=== PATIENT | male | born 1985 | race Caucasian/White ===

== ENCOUNTER 2016-11-29 22:44 | Emergency (ER) | payer OTHER, MEDICAID ==
[2016-11-29] MEDS ORDERED: 0.9% Sodium Chloride 1,000 ML IV ONE (22:50)
[2016-11-29 23:01] LABS: BASOPHILS % (AUTO) 2.5 % (0-3); EOSINOPHILS % (AUTO) 4.2 % (0-5); MONOCYTES % (AUTO) 8.8 % (4-12); Mean Corpuscular Hemoglobin 29.3 pg (27.0-35.0); Mean Corpuscular Volume 86.8 fL (81-100); NEUTROPHILS % (AUTO) 41.7 % (40-74); Platelet Count 248 bil/L (150-400)
[2016-11-29 23:20] LABS: INR 0.93 ratio
[2016-11-29] MEDS ORDERED: HYDROmorphone 0.5 mg/0.5 mL iSecure Syringe IVPUSH PRN (23:25)
[2016-11-29] MEDS ORDERED: TdaP Vaccine 0.5 mL Inj IM ONE (23:25)
[2016-11-29] MEDS ORDERED: Ondansetron 2 mg/mL 2 mL Inj IVPUSH PRN (23:25)
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
[2016-11-29] MEDS ORDERED: Dextrose 5% 0.9% NaCl 1,000 ML IV SCH (23:56)
[2016-11-30] MEDS ORDERED: MetoCLOpramide 5 mg/mL 2 mL Inj IVPUSH PRN
[2016-11-30] MEDS ORDERED: Ondansetron 2 mg/mL 2 mL Inj IVPUSH PRN
[2016-11-30] MEDS ORDERED: HYDROmorphone 1 mg/mL Inj IVPUSH PRN
[2016-11-30 00:09] LABS: APPEARANCE,URINE CLOUDY (CLEAR,HAZY); COLOR,URINE RED (YELLOW); OCCULT BLOOD,URINE LARGE (NEGATIVE); UROBILINOGEN,URINE NORMAL (NORMAL)
[2016-11-30] MEDS ORDERED: Lidocaine 1%-Epi 1:100,000 20 mL Inj ONE (00:41)
[2016-11-30 02:32] VITALS: BP 114/66; PULSE 87; RESP 18; O2SAT 98
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
--- NOTE | 2016-11-30 06:25 | DRSVH ---
PROCEDURE: CT BRAIN WITHOUT CONTRAST ([id number]) INDICATIONS: trauma TECHNIQUE: Noncontrast 4.5 mm thick angled axial sections acquired from the foramen magnum to the vertex, with c oronal reformats. COMPARISON: None. FINDINGS: Image quality: Excellent. CSF spaces: Basal cisterns are patent. No extra-axial fluid collections. Ventricles are normal in size and shape. Brain: No midline shift. No intracranial masses or hemorrhage. Chávez-white matter interface is norm al. Skull and face: Calvarium and visualized facial bones are intact, without suspicious lesions. Sinuses: There is a left maxillary sinus mucus retention cyst. Visualized sinuses and mastoids are o therwise clear. Soft tissue swelling is present at the tip of the nose. IMPRESSION: 1. No acute intracranial findings. 2. Nasal soft tissue swelling. These findings are concordant with the overnight interpretation. Dictated by: Giulia Charlton M.D. on 11/30/2016 at 6:21 Approved by: Giulia Charlton M.D. on 11/30/2016 at 6:23
--- NOTE | 2016-11-30 06:36 | DRSVH ---
PROCEDURE: CT CHEST, ABDOMEN AND PELVIS WITH CONTRAST ([id number]) INDICATIONS: trauma TECHNIQUE: After the administration of intravenous contrast, 5 mm thick sections acquired from the lung apices t o the symphysis. 5 mm thick coronal and sagittal reformats were acquired. Additional 7 mm thick cor onal maximum intensity projection (MIP) reformats acquired through the lungs. Optional 10-minute del ayed imaging may be performed from the kidneys to the bladder. For radiation dose reduction, the fol lowing was used: automated exposure control, adjustment of mA and/or kV according to patient size. COMPARISON: None. FINDINGS: Image quality: Excellent. CHEST: Lungs: Trace patchy airspace opacities are present within the anterior mid lingula. This may represen t a small pulmonary contusion. Lung volumes are low. No other contusion or laceration. No pneumothora x. No pleural effusion. Mediastinum: No mediastinal hematomas. Heart size is normal. No pericardial effusion. Thoracic ao rta and pulmonary arteries demonstrate normal size and enhancement. No mediastinal or hilar adenopat hy. Esophagus is normal in caliber. No hiatal hernia. Chest wall: No rib fractures. A probable small bone fragment is present adjacent to the left aspect of the manubrium which may represent a small avulsion fracture (series 5, image 11). No subcutaneous emphysema. No axillary or supraclavicular adenopathy. Thyroid gland is unremarkable. ABDOMEN: Solid organs: Liver and spleen are normal in size and enhancement, without lacerations. Gallbladder is unremarkable. Biliary system is non-dilated. Pancreas enhances normally, without transection. No adrenal hematomas. Both kidneys enhance normally, without hydronephrosis or lacerations. Peritoneum and bowel: No free fluid or air. Unenhanced bowel loops demonstrate normal wall thicknes s and caliber. Nodes and vessels: No retroperitoneal or mesenteric adenopathy. Aorta and inferior vena cava are no rmal in size and enhancement. The appendix is thin walled and gas filled. Miscellaneous: No ventral hernias. PELVIS: Genitourinary: Bladder wall thickness is normal. Miscellaneous: No inguinal hernias or adenopathy. A small soft tissue laceration overlies the left i nguinal region. Subcutaneous emphysema tracks along the anterior aspect of the left gluteus musculatu re, posterior to the anterior left iliac bone.. Bones: Pelvic ring and hip joints appear intact. No vertebral compression fractures. There are min imally displaced bilateral L1, L2, L3, L4, and a right L5 transverse process fracture. There is hemat whit overlying the posterior paraspinous musculature, slightly greater on the right. There is a displa jermain anterior right second rib fracture. There is a displaced anterior right fifth, sixth and seventh rib fracture. IMPRESSION: 1. Patchy lingular airspace opacities suspicious for mild pulmonary contusion. No pulmonary laceratio n or pneumothorax. 2. No mediastinal or acute intra-abdominal findings. 3. Multilevel bilateral displaced transverse process fractures. With associated paraspinous hematoma. No wedge compression deformities. 4. Right anterior rib fractures. 5. Left iliac soft tissue laceration with subcutaneous emphysema. No associated iliac bone fracture. These findings are concordant with the overnight interpretation. 6. Questionable small avulsion fracture of the left manubrium. Dictated by: Giulia Charlton M.D. on 11/30/2016 at 6:24 Approved by: Giulia Charlton M.D. on 11/30/2016 at 6:34
--- NOTE | 2016-11-30 06:39 | DRSVH ---
PROCEDURE: CT CERVICAL SPINE WITHOUT CONTRAST ([id number]) INDICATIONS: trauma TECHNIQUE: Noncontrast 3 mm thick sections acquired from the skull base to the T4 level. Sagittal and coronal r eformats were then constructed. For radiation dose reduction, the following was used: automated exp osure control, adjustment of mA and/or kV according to patient size. COMPARISON: None. FINDINGS: Image quality: Excellent. Bones: No fractures or dislocations. Visualized superior ribs are intact. Soft tissues: Prevertebral soft tissues are normal in thickness. No paravertebral hematomas. No ap ical pneumothoraces. IMPRESSION: No acute cervical spine injury. These findings are concordant with the overnight interpretation. Dictated by: Giulia Charlton M.D. on 11/30/2016 at 6:36 Approved by: Giulia Charlton M.D. on 11/30/2016 at 6:37
--- NOTE | 2016-11-30 07:28 | DRSVH ---
PROCEDURE: X-RAY LEFT TIBIA/FIBULA, TWO VIEWS ([id number]) INDICATIONS: trauma TECHNIQUE: 2 views of the tibia and fibula were acquired. COMPARISON: [facility], , XR ANKLE 3VW LT, 11/29/2016, 23:59. FINDINGS: Bones: Minimally displaced medial and lateral malleolar fractures are noted (and better characterized on dedicated views of the ankle). Soft tissues: A soft tissue laceration overlies the midshaft of the fibular diaphysis. No underlying fracture. IMPRESSION: 1. Medial and lateral displaced malleolar fractures. 2. Soft tissue laceration overlying the fibular diaphysis without underlying fracture. Dictated by: Giulia Charlton M.D. on 11/30/2016 at 7:25 Approved by: Giulia Charlton M.D. on 11/30/2016 at 7:26
--- NOTE | 2016-11-30 07:29 | DRSVH ---
PROCEDURE: X-RAY LEFT ANKLE, MINIMUM THREE VIEWS ([id number]) INDICATIONS: trauma TECHNIQUE: 3 views of the ankle were acquired. COMPARISON: None. FINDINGS: Bones: There are displaced lateral and medial malleolar fractures. The talar dome is intact. The mort ise joint is grossly intact. Soft tissues: There is a small joint effusion. Achilles tendon is intact. IMPRESSION: Medial and lateral displacement malleolar fractures. Dictated by: Giulia Charlton M.D. on 11/30/2016 at 7:27 Approved by: Giulia Charlton M.D. on 11/30/2016 at 7:28
--- NOTE | 2016-11-30 07:35 | DRSVH ---
PROCEDURE: X-RAY RIGHT ANKLE, MINIMUM THREE VIEWS ([id number]) INDICATIONS: trauma TECHNIQUE: 3 views of the ankle were acquired. COMPARISON: None. FINDINGS: Bones: There is a displaced medial malleolar and posterior malleolar fracture. There is also a displa jermain, comminuted fracture within the distal third of the fibular diaphysis. The talar dome is intact. No other fractures or dislocations. Soft tissues: There is marked soft tissue swelling at the ankle. IMPRESSION: Fibular diaphyseal fracture and medial and posterior malleolar fracture as above. Dictated by: Giulia Charlton M.D. on 11/30/2016 at 7:30 Approved by: Giulia Charlton M.D. on 11/30/2016 at 7:33
--- NOTE | 2016-11-30 07:36 | DRSVH ---
PROCEDURE: X-RAY RIGHT TIBIA/FIBULA, TWO VIEWS ([id number]) INDICATIONS: trauma TECHNIQUE: 2 views of the tibia and fibula were acquired. COMPARISON: None. FINDINGS: Bones: There is a comminuted, displaced, slightly angulated fracture of the distal third of the fibul ar diaphysis. There is a displaced medial malleolar and posterior malleolar fracture. Soft tissues: No suspicious soft tissue calcifications or masses. IMPRESSION: Posterior and medial malleolar fractures and tibial diaphyseal fracture as above. Dictated by: Giulia Charlton M.D. on 11/30/2016 at 7:33 Approved by: Giulia Charlton M.D. on 11/30/2016 at 7:34
== END 2016-11-30 04:21 | disposition short-term general hospital (02) ==
LOC: EDBD 22:44 → SED 22:44 → MPC 11-30 00:49 → UNDOADMIN 11-30 00:49 → SED 11-30 04:21
DX: S32.008A Other fracture of unspecified lumbar vertebra, initial encounter for closed fracture (principal); S22.41XA Multiple fractures of ribs, right side, initial encounter for closed fracture; S82.424A Nondisplaced transverse fracture of shaft of right fibula, initial encounter for closed fracture; S82.891A Other fracture of right lower leg, initial encounter for closed fracture; S82.892A Other fracture of left lower leg, initial encounter for closed fracture; S01.21XA Laceration without foreign body of nose, initial encounter; S31.114A Laceration without foreign body of abdominal wall, left lower quadrant without penetration into peritoneal cavity, initial encounter; S81.812A Laceration without foreign body, left lower leg, initial encounter; S70.212A Abrasion, left hip, initial encounter; S20.91XA Abrasion of unspecified parts of thorax, initial encounter; V43.52XA Car driver injured in collision with other type car in traffic accident, initial encounter; Y92.410 Unspecified street and highway as the place of occurrence of the external cause; Y93.89 Activity, other specified; Y99.8 Other external cause status; F10.129 Alcohol abuse with intoxication, unspecified; I10 Essential (primary) hypertension; E10.9 Type 1 diabetes mellitus without complications; Z88.8 Allergy status to other drugs, medicaments and biological substances
CPT/HCPCS: 12032; 29505; 29515; 36415; 70450; 71260; 72125; 73590; 73610; 74177; 80053; 81000; 84484; 85025; 85610; 85730; 86850; 93005; 96360; 99291; G0390; G0480; Q9967